=== PATIENT | female | born 1995 | race Two or more races ===

== ENCOUNTER 2023-11-13 14:26 | Inpatient (IN) | payer BC, MEDICAID ==
[~2023-11-13 14:26] MED LIST: Bupivacaine 0.25% HCL 30 ML VIAL ONE; Terbutaline Sulfate 1 MG/ML VIAL ONE; ePHEDrine Sulfate 50 MG/10 ML VIAL ONE
[2023-11-13 15:43] VITALS: BMI 26.4
[2023-11-13] MEDS ORDERED: Dextrose 5%-Lactated Ringers 1,000 ML IV SCH (15:45)
[2023-11-13] MEDS ORDERED: Diphenoxylate HCl/Atropine Tablet PO PRN ×2 (17:36)
[2023-11-13] MEDS ORDERED: HYDROcodone/Acetaminophen 5/325 mg Tablet PO PRN ×2 (17:36)
[2023-11-13] MEDS ORDERED: hydrALAZINE 20 MG/ML VIAL SLOW IVP PRN (17:36)
[2023-11-13] MEDS ORDERED: Oxytocin 30 units/NS 500 ML 500 ML IV SCH (17:36)
[2023-11-13] MEDS ORDERED: Promethazine HCl 25 MG/ML VIAL IM PRN (17:36)
[2023-11-13] MEDS ORDERED: Ondansetron PF 4 MG/2 ML Vial IVP PRN (17:36)
[2023-11-13] MEDS ORDERED: Carboprost 250 MCG/ML AMP IM PRN (17:36)
[2023-11-13] MEDS ORDERED: Lidocaine 1% (PF) 30 ML VIAL SC PRN (17:36)
[2023-11-13] MEDS ORDERED: Acetaminophen 500 MG TAB PO PRN (17:36)
[2023-11-13] MEDS: Lactated Ringer's 1,000 ML IV SCH (20:50)
[2023-11-13 20:51] LABS: Hematocrit 38.3 % (34.9-44.5); Mean Corpuscular HGB CONC 33.9 g/dL (32.0-36.0); Mean Corpuscular Hemoglobin 28.3 pg (27.0-33.0); Mean Corpuscular Volume 83.4 fl (81.6-98.3); Platelet Count 176 10x3/uL (150-450); RBC Distribution Width 14.1 % (11.5-14.5); Red Blood Cell (RBC) Count 4.59 10x6/uL (3.90-5.03); White Blood Cell (WBC) Count 9.7 10x3/uL (3.5-10.5)
[2023-11-13] MEDS: Misoprostol 100 MCG TAB VAG SCH (21:45)
[2023-11-13 22:08] LABS: Syphilis Antibody Nonreactive (Nonreactive); Syphilis Antibody Index 0.04 S/CO (<1.00 Non-Reactive)
[2023-11-13 23:01] LABS: HBSAg Index 0.22 S/CO (0-0.99); Hep B Surf Ag - L&D Non-Reactive S/CO (NonReactive)
[2023-11-14] MEDS: fentaNYL/Ropivacaine Epidural 100 ML ONE (03:40)
[2023-11-14] MEDS ORDERED: diphenhydrAMINE 50 MG/ML VIAL IVP PRN (06:17)
[2023-11-14] MEDS ORDERED: Lactated Ringer's 500 ML IV PRN (06:17)
[2023-11-14] MEDS ORDERED: Naloxone HCl 0.4 mg/ml Vial IVP PRN ×2 (06:17)
[2023-11-14] MEDS ORDERED: Acetaminophen 325 MG TAB PO PRN (06:17)
[2023-11-14] MEDS ORDERED: ePHEDrine Sulfate 50 MG/10 ML VIAL SLOW IVP PRN (06:17)
[2023-11-14] MEDS ORDERED: Ondansetron PF 4 MG/2 ML Vial IVP PRN (06:17)
[2023-11-14] MEDS ORDERED: Promethazine HCl 25 MG/ML VIAL IM PRN (06:17)
[2023-11-14] MEDS ORDERED: Moisturizing Cream (Eucerin) 113 GM JAR TOP PRN (06:17)
[2023-11-14] MEDS ORDERED: fentaNYL 2 mcg/Ropivacaine 0.2% Epidural 100 ML CADD EPIDURAL SCH (06:30)
[2023-11-14] MEDS ORDERED: Communication Order-Pharmacy FS SCH (06:30)
[2023-11-14] MEDS: Misoprostol 200 MCG TAB PR PRN (14:15)
[2023-11-14] MEDS: Methylergonovine 0.2 MG/ML VIAL IM PRN (14:20)
[2023-11-14] MEDS: Tranexamic Acid 1,000 MG/10 ML VIAL IVP PRN (14:22)
[2023-11-14 14:38] LABS: Analyzer IN Cardio CS NICU; RapidComm Collect By CBN
[2023-11-14 14:39] LABS: Analyzer IN Cardio CS NICU; RapidComm Collect By CBN; pH (Cord, venous) 7.329 (7.250-7.350)
[2023-11-14] MEDS: Oxytocin 30 units/NS 500 ML 500 ML IV SCH (14:41)
[2023-11-14] MEDS: fentaNYL 50 mcg/mL 1 mL Vial SLOW IVP PRN (14:52)
[2023-11-14 15:23] LABS: D-Dimer Test 3.3 mcg/mL (0.19-0.50); PTT 28.5 sec (22.0-33.0); Prothrombin Time 10.4 sec (9.5-12.1)
[2023-11-14] MEDS: Oxytocin 30 units/NS 500 ML 500 ML ONE (15:34)
[2023-11-14] MEDS: CEFAZOLIN 2 GM VIAL ONE (16:05)
[2023-11-14] MEDS: CEFAZOLIN 2 GM in Sodium Chloride 0.9% 100 ML IVPB SCH (16:05)
[2023-11-14] MEDS: Ibuprofen 800 MG TAB PO PRN (16:05)
[2023-11-14] MEDS: fentaNYL 50 mcg/mL 1 mL Vial ONE (16:13)
[2023-11-14] MEDS: Witch Hazel-Glycerin 1 EACH JAR TOP PRN (16:35)
[2023-11-14] MEDS ORDERED: Benzocaine-Menthol 82.5 ML CAN TOP PRN (17:10)
[2023-11-14] MEDS ORDERED: Bisacodyl 10 MG SUPP PR PRN (17:10)
[2023-11-14] MEDS ORDERED: hydrALAZINE 20 MG/ML VIAL SLOW IVP PRN (17:10)
[2023-11-14] MEDS ORDERED: Milk Of Magnesia 30 ML UDCUP PO PRN (17:10)
[2023-11-14] MEDS: fentaNYL 50 mcg/mL 1 mL Vial SLOW IVP SCH (18:42)
[2023-11-14 21:28] LABS: Hematocrit 30.3 % (34.9-44.5); Hemoglobin 10.7 g/dL (12.0-15.5); Mean Corpuscular HGB CONC 35.3 g/dL (32.0-36.0); Mean Corpuscular Hemoglobin 29.4 pg (27.0-33.0); Mean Corpuscular Volume 83.2 fl (81.6-98.3); Mean Platelet Volume 11.1 fl (7.4-10.4); Platelet Count 127 10x3/uL (150-450); Red Blood Cell (RBC) Count 3.64 10x6/uL (3.90-5.03); White Blood Cell (WBC) Count 17.5 10x3/uL (3.5-10.5)
[2023-11-14] MEDS: HYDROcodone/Acetaminophen 5/325 mg Tablet PO PRN (23:32)
[2023-11-14] MEDS: Ibuprofen 800 MG TAB PO SCH (23:33)
[2023-11-15 04:25] LABS: Hematocrit 27.4 % (34.9-44.5); Hemoglobin 9.4 g/dL (12.0-15.5); Mean Corpuscular HGB CONC 34.3 g/dL (32.0-36.0); Mean Corpuscular Volume 84.6 fl (81.6-98.3); Mean Platelet Volume 11.6 fl (7.4-10.4); Platelet Count 123 10x3/uL (150-450); RBC Distribution Width 14.4 % (11.5-14.5); Red Blood Cell (RBC) Count 3.24 10x6/uL (3.90-5.03); White Blood Cell (WBC) Count 14.5 10x3/uL (3.5-10.5)
[2023-11-15] MEDS: Docusate 100 MG CAP PO SCH (06:14)
[2023-11-15] MEDS: Boostrix 0.5 ML (Tdap) VIAL (>/=7 yrs of age) IM ONE (08:08)
[2023-11-15] MEDS: Ferrous Sulfate 325 MG TAB PO SCH (08:10)
[2023-11-16 08:38] LABS: Hematocrit 25.9 % (34.9-44.5); Hemoglobin 9.1 g/dL (12.0-15.5); Mean Corpuscular HGB CONC 35.1 g/dL (32.0-36.0); Mean Corpuscular Hemoglobin 29.8 pg (27.0-33.0); Mean Corpuscular Volume 84.9 fl (81.6-98.3); Platelet Count 126 10x3/uL (150-450); RBC Distribution Width 14.7 % (11.5-14.5); Red Blood Cell (RBC) Count 3.05 10x6/uL (3.90-5.03); White Blood Cell (WBC) Count 11.7 10x3/uL (3.5-10.5)
[2023-11-16] MEDS: Preparation H Ointment 28 GM TUBE PR PRN (14:32)
[2023-11-17 08:09] VITALS: BP 90/52; TEMP 98.2
== END 2023-11-17 14:20 | disposition home or self-care (01) | DRG 806 ==
LOC: CSHLD/OP 14:26 → CSHLD 18:27 → CSHPP 11-14 22:20
PROVIDERS: ADMIT Obstetrics & Gynecology; ATTEND Obstetrics & Gynecology
PROC: 10D07Z3 Extraction of Products of Conception, Low Forceps, Via Natural or Artificial Opening (ICD-10-PCS; principal; 2023-11-14)
PROC: 0KQM0ZZ Repair Perineum Muscle, Open Approach (ICD-10-PCS; 2023-11-14)
PROC: 3E0P7VZ Introduction of Hormone into Female Reproductive, Via Natural or Artificial Opening (ICD-10-PCS; 2023-11-14)
PROC: 0UQGXZZ Repair Vagina, External Approach (ICD-10-PCS; 2023-11-14)
PROC: 30233N1 Transfusion of Nonautologous Red Blood Cells into Peripheral Vein, Percutaneous Approach (ICD-10-PCS; 2023-11-14)
DX: O48.0 Post-term pregnancy (principal); O72.1 Other immediate postpartum hemorrhage; Z37.0 Single live birth; Z3A.41 41 weeks gestation of pregnancy; O76 Abnormality in fetal heart rate and rhythm complicating labor and delivery; O62.1 Secondary uterine inertia; O70.1 Second degree perineal laceration during delivery
CPT/HCPCS: 36415; 36430; 51702; 82805; 85027; 85049; 85300; 85362; 85384; 85610; 85730; 86780; 86850; 86900; 86901; 87340; 99285; J0665; J2210; J2590; J3010; J3105; J3490; J7120; P9016